=== PATIENT | female | born 1945 | race Caucasian/White ===

== ENCOUNTER 2020-04-30 16:46 | Emergency (ER) | payer MEDICARE ==
[~2020-04-30] VITALS: Ht 154.9 cm; Wt 68.0 kg
[~2020-04-30 16:46] MED LIST: CIPROFLOXACIN500 MG PO
== END 2020-04-30 19:00 | disposition left against medical advice (07) ==
LOC: ED 16:46
DX: M54.9 Dorsalgia, unspecified (principal); Z53.21 Procedure and treatment not carried out due to patient leaving prior to being seen by health care provider